=== PATIENT | male | born 1995 | race Caucasian/White ===

== ENCOUNTER 2019-04-19 22:36 | Emergency (ER) | payer BC ==
[2019-04-19] MEDS ORDERED: NS 0.9% 1000 ML** 1,000 ML IV ONE (23:23)
[2019-04-19] MEDS ORDERED: Ondansetron INJ* 2 MG/ML VIAL IV ONE (23:23)
--- NOTE | 2019-04-19 23:30 | ED ---
Nausea/Vomiting/Diarrhea HPI - HPI Summary HPI Summary: Patient complains of sudden onset left upper quadrant cramping with associated nausea vomiting and diarrhea 5 hours. Abdominal pain described as crampy, intermittent. Improves with BM or vomiting. Unable tolerate by mouth intake. Denies fever, cough, sore throat, CP, SOB, change in urine, testicular or penile symptoms. Medical history is none. Abdominal surgical history is none. - History of Current Complaint Chief Complaint: EDNauseaVomitDiarrh Stated Complaint: ABD PAIN PER PT Time Seen by Provider: 04/19/19 23:22 Hx Obtained From: Patient Onset/Duration: Sudden Onset, Lasting Hours Severity Initially: Moderate Severity Currently: Moderate Pain Intensity: 7 Pain Scale Used: 0-10 Numeric Location: Discrete At: LUQ Character: Cramping Aggravating Factor(s): Nothing Alleviating Factor(s): Vomiting, Bowel Movement Nausea/Vomiting Presence: Vomiting Vomiting Frequency: Every 3-4 hours Vomiting Characteristics: Nonbilious Diarrhea Presence: Yes Diarrhea Characteristics: Watery - Allergies/Home Medications Allergies/Adverse Reactions: Allergies Allergy/AdvReac Type Severity Reaction Status Date / Time No Known Allergies Allergy Verified 04/19/19 22:38 Home Medications: Home Medications NK [No Home Medications Reported] 04/19/19 [History Confirmed 04/19/19] PMH/Surg Hx/FS Hx/Imm Hx Endocrine/Hematology History: Denies: Hx Anticoagulant Therapy Cardiovascular History: Denies: Hx Pacemaker/ICD History: Denies: Hx Dialysis Sensory History: Denies: Hx Eye Prosthesis Opthamlomology History: Denies: Hx Legally Blind EENT History: Denies: Hx Deafness Neurological History: Denies: Hx Dementia Infectious Disease History: No Infectious Disease History: Denies: Traveled Outside the [place] in Last 30 Days - Family History Known Family History: Positive: Non-Contributory - Social History Alcohol Use: Occasionally Hx Substance Use: No Hx Tobacco Use: No Review of Systems Constitutional: Negative Eyes: Negative ENT: Negative Cardiovascular: Negative Respiratory: Negative Positive: Abdominal Pain, Vomiting, Diarrhea, Nausea Genitourinary: Negative Musculoskeletal: Negative Skin: Negative Neurological: Negative Psychological: Normal All Other Systems Reviewed And Are Negative: Yes Physical Exam - Summary Physical Exam Summary: Abdomen soft nontender. Triage Information Reviewed: Yes Vital Signs On Initial Exam: Initial Vitals Temp Pulse Resp BP Pulse Ox 98.3 F 75 15 130/97 100 04/19/19 22:36 04/19/19 22:36 04/19/19 22:36 04/19/19 22:36 04/19/19 22:36 Vital Signs Reviewed: Yes Appearance: Positive: Well-Appearing Skin: Positive: Warm Head/Face: Positive: Normal Head/Face Inspection Eyes: Positive: Normal Neck: Positive: Supple Respiratory/Lung Sounds: Positive: Clear to Auscultation Cardiovascular: Positive: Normal Abdomen Description: Positive: Nontender Musculoskeletal: Positive: Normal Neurological: Positive: Normal Psychiatric: Positive: Normal AVPU Assessment: Alert - [place] Coma Scale Best Eye Response: 4 - Spontaneous Best Motor Response: 6 - Obeys Commands Best Verbal Response: 5 - Oriented Coma Scale Total: 15 Procedures - Sedation Patient Received Moderate/Deep Sedation with Procedure: No Diagnostics - Vital Signs Vital Signs Temp Pulse Resp BP Pulse Ox 04/19/19 22:36 98.3 F 75 15 130/97 100 - Laboratory Result Diagrams: 04/19/19 23:45 04/19/19 23:45 Lab Statement: Any lab studies that have been ordered have been reviewed, and results considered in the medical decision making process. Naus/Vom/Diarrhea Course/Dx - Course Course Of Treatment: Patient complains of sudden onset left upper quadrant cramping with associated nausea vomiting and diarrhea 5 hours. Abdominal pain described as crampy, intermittent. Improves with BM or vomiting. Unable tolerate by mouth intake. Denies fever, cough, sore throat, CP, SOB, change in urine, testicular or penile symptoms. Medical history is none. Abdominal surgical history is none. Vital signs within normal limits. WBC 12. Lactic 2.6. 1 L normal saline administered. Patient's symptoms completely resolved with IV fluids and Zofran. - Differential Dx/Diagnosis Provider Diagnosis: Nausea vomiting and diarrhea, Abdominal cramping Condition At Discharge: Stable Discharge ED - Sign-Out/Discharge Documenting (check all that apply): Patient Departure - Discharge Plan Condition: Stable Disposition: HOME Patient Education Materials: Acute Nausea and Vomiting (ED) Referrals: No Primary Care Phys,NOPCP [Primary Care Provider] - Additional Instructions: Use Zofran as directed for nausea if needed. Drink plenty of fluids to maintain hydration. Follow-up with primary care. Return to the ED for any new or worsening symptoms. - Billing Disposition and Condition Condition: STABLE Disposition: Home
[2019-04-20 00:05] LABS: ABS Lymphocytes 0.6 10^3/ul (1.0-4.8); ABS Monocytes 0.4 10^3/ul (0-0.8); ABS Neutrophils 11.1 10^3/ul (1.5-7.7); Hematocrit 41 % (42-52); Hemoglobin 14.5 g/dL (14.0-18.0); Lymphocyte % 5.2 %; Mean Corpuscular HGB Conc 36 g/dL (31-36); Mean Corpuscular Hemoglobin 31 pg (27-31); Mean Corpuscular Volume 88 fL (80-94); Mean Platelet Volume 9.9 fL (7.4-10.4); Nucleated Red Blood Cells % 0.1; Platelet Count 199 10^3/uL (150-450); Red Blood Count 4.67 10^6 /uL (4.18-5.48); Red Cell Distribution Width 13 % (10-15); White Blood Count 12.2 10^3/uL (3.5-10.8)
[2019-04-20 00:21] LABS: Influenza A Molecular Negative (Negative); Influenza B Molecular Negative (Negative)
[2019-04-20] MEDS ORDERED: O ndansetron ODT 4MG 5TAB PRPK 4 MG PAK PO ONE (00:21)
[2019-04-20 00:23] LABS: ALT 18 U/L (7-52); AST 20 U/L (13-39); Albumin 5.1 g/dL (3.2-5.2); Alkaline Phosphatase 58 U/L (34-104); Anion Gap 12 mmol/L (2-11); BUN/Creatinine Ratio 17.8 (8-20); Blood Urea Nitrogen 16 mg/dL (6-24); C Reactive Protein < 1.00 mg/L (<8.01); CO2 Carbon Dioxide 21 mmol/L (22-32); Calcium 9.7 mg/dL (8.6-10.3); Chloride 105 mmol/L (101-111); EGFR African American 124.4 (>60); EGFR Non-African American 102.8 (>60); Globulin 2.6 g/dL (2-4); Glucose 121 mg/dL (70-100); Potassium 3.4 mmol/L (3.5-5.0); Sodium 138 mmol/L (135-145); Total Protein 7.7 g/dL (6.4-8.9)
[2019-04-20 01:18] VITALS: BP 113/59
== END 2019-04-20 00:55 | disposition home or self-care (01) ==
LOC: EDBD 22:36 → ED 22:36
DX: R11.2 Nausea with vomiting, unspecified (principal); R19.7 Diarrhea, unspecified; R10.9 Unspecified abdominal pain
CPT/HCPCS: 36415; 80053; 83605; 83690; 85025; 86140; 96361; 96374; 99282; A9270-GY; J2405